=== PATIENT | female | born 2000 | race Caucasian/White ===

== ENCOUNTER 2019-01-01 21:25 | Emergency (ER) | payer SELFPAY ==
[2019-01-01 21:32] VITALS: BP 112/77; PULSE 92; RESP 16; TEMP 36.9; O2SAT 99; BMI 25.6
[2019-01-01 23:03] VITALS: BP 108/62; PULSE 82; RESP 16; O2SAT 100
[2019-01-01 23:30] VITALS: BP 108/67; PULSE 78; RESP 16; O2SAT 98
[2019-01-01] MEDS: KETOROLAC 60 MG/2 ML VIAL IM (23:48)
[2019-01-01] MEDS: ONDANSETRON 4 MG ODT SL (23:48)
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
[2019-01-02] VITALS: BP 119/59; PULSE 88; O2SAT 99
[2019-01-02] MEDS: ONDANSETRON 4 MG ODT PREPACK 1 BOTTLE MISC (00:54)
[2019-01-02 01:01] VITALS: BP 104/60; PULSE 80; RESP 18; O2SAT 100
== END 2019-01-02 01:02 | disposition home or self-care (01) ==
PROVIDERS: Emergency Provider Emergency Medicine
DX: R51 Headache (principal); V03.90XD Pedestrian on foot injured in collision with car, pick-up truck or van, unspecified whether traffic or nontraffic accident, subsequent encounter
CPT/HCPCS: 96372; 99283; J1885

== ENCOUNTER 2019-08-16 17:46 | Emergency (ER) | payer OTHER, SELFPAY ==
[2019-08-16 17:55] VITALS: BP 145/93; PULSE 116; RESP 16; TEMP 36.5; O2SAT 99; BMI 26.4
--- NOTE | 2019-08-16 19:10 | ED.SEIZURE ---
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 today. One of these was observed in the emergency department and involved some tonic clonic movement some vocalization she was able to respond throughout the seizure had no postictal period and is doing fine after spontaneouse resolution of the activity At the age of 14 she had full workup for similar including imaging EEGs and provocative testing. Eventually she was told that the seizures were related to migraine resolved after being on Topamax for a period of time. She notes that she had 4 seizures about a year and half ago following a very stressful day. Follow-up questioning on that does reveal that her job has been quite stressful and this morning they're some incidence at work that dramatically increased her overall stressors in the setting of having almost no sleep last night. She has a supportive partner at bedside who's quite concerned about her. She is awake alert able to give a completely coherent history including all of the workup from her initial diagnostic time and this is approximately 10 minutes after the last ?seizure? Related Data Allergies Allergy/AdvReac Type Severity Reaction Status Date / Time amoxicillin Allergy Severe Anaphylaxis Verified 08/16/19 17:55 cephalexin Allergy Severe Hives Verified 08/16/19 17:55 Penicillins Allergy Severe Anaphylaxis Verified 08/16/19 17:55 morphine Allergy Verified 08/16/19 17:55 Review of Systems Review of Systems Narrative: Denies ? fever ? cough ? cold ? chills ? chest pain ? dyspnea ? orthopnea ? wheezing ? abdominal pain ? change to bowel or bladder habits ? vomiting ? skin changes ? rashes Has had mild nausea, dry mouth, poor sleep, increased anxiety Patient History Medical History (Updated 08/16/19 @ 23:21 by Amie Nuñez MD) History of pseudoseizure (Inactive) Migraine (Acute) Social History Smoking Status: Never smoker Smoking Status: Never smoker alcohol intake frequency: 0-2 drinks per day Substance Use Type: does not use Exam Narrative Exam Narrative: General: Healthy appearing, in no acute distress. Able to give a complete and coherent history. Well-nourished well-developed HEENT: Moist mucous membranes, normal sclera with reactive pupils, pupils slightly dilated at 6 mm reactive to light accommodation Neck: No JVD, supple Respiratory: Lungs are clear to auscultation, no wheezing no rales no rhonchi. Full and symmetrical air movement Cardiac: Regular rate and rhythm no murmurs no bruits Abdomen: Soft nontender good bowel tones, no flank pain Skin: Warm and dry, no rashes Neurologic: Grossly neurologically intact with no obvious asymmetries or abnormalities. Reflexes are 2+ without hyper reflexia Extremities: No trauma, well perfused Psych: Cooperative, appropriate insight and affect Initial Vital Signs Initial Vital Signs: Vital Signs Temperature 97.7 F 08/16/19 17:55 Pulse Rate 116 H 08/16/19 17:55 Respiratory Rate 16 08/16/19 17:55 Blood Pressure 145/93 H 08/16/19 17:55 Pulse Oximetry 99 08/16/19 17:55 Course Orders Ordered: Discontinued Medications Sodium Chloride (Normal Saline 0.9%) 1,000 mls @ 1,000 mls/hr IV BOLUS ONE Stop: 08/16/19 20:14 Last Infusion: 08/16/19 20:38 Dose: 0 mls/hr Documented by: Admin: 08/16/19 19:29 Dose: 1,000 mls/hr Documented by: CHARMAINE Lorazepam (Ativan) 0.5 mg IV NOW ONE Stop: 08/16/19 19:16 Last Admin: 08/16/19 19:29 Dose: 0.5 mg Documented by: CHARMAINE Vital Signs Vital signs: Vital Signs - 8 hr 08/16/19 21:51 08/16/19 23:26 Pulse Rate 81 Blood Pressure [Left Arm] 101/56 L 114/69 Pulse Oximetry 98 MDM - Seizure Lab Data Result diagrams: 08/16/19 19:20 08/16/19 19:20 Labs: Lab Results 08/16/19 08/16/19 08/16/19 Range/Units 17:59 19:20 19:20 WBC 7.2 (4.5-11.0) X10^3/uL RBC 4.41 (4.0-5.2) X10^6/uL Hgb 13.3 (12.0-16.0) g/dL Hct 39.2 (36-46) % MCV 89.0 (80-100) fL MCH 30.1 (26-34) PG MCHC 33.8 (30-36) % RDW 14.2 (11.6-14.8) % Plt Count 321 (150-400) X10^3/uL Neut % (Auto) 65.9 (50-75) % Lymph % (Auto) 24.6 L (25-40) % [place] % (Auto) 7.5 (3-14) % Eos % (Auto) 1.2 L (2-4) % Baso % (Auto) 0.8 (0-2) % Neut # (Auto) 4700 (4472-1071) /uL Lymph # (Auto) 1800 (2591-9562) /uL [place] # (Auto) 500 (0-900) /uL Eos # (Auto) 100 (0-450) /uL Baso # (Auto) 100 (0-100) /uL Sodium 143 (137-145) mmol/L Potassium 3.9 (3.4-5.1) mmol/L Chloride 109 H (98-107) mmol/L Carbon Dioxide 25 (22-32) mmol/L BUN 13 (7-17) mg/dL Creatinine 0.60 (0.52-1.04) mg/dL Estimated GFR > 60.0 (>60) mL/min BUN/Creatinine Ratio 21.7 (6-22) Glucose 91 (70-100) mg/dL Calcium 10.7 H (8.4-10.2) mg/dL Magnesium 2.0 (1.6-2.3) mg/dL U Opiates 300ng/mL cut Negative (Negative) Ur Oxycodone Screen Negative (Negative) Urine Methadone Screen Negative (Negative) Ur Barbiturates Screen Negative (Negative) U Tricyclic Antidepress Negative (Negative) Ur Phencyclidine Scrn Negative (Negative) Ur Amphetamines Screen Negative (Negative) U Methamphetamines Scrn Negative (Negative) Ur MDMA Scrn (Ecstasy) Negative (Negative) U Benzodiazepines Scrn Negative (Negative) Urine Cocaine Screen Negative (Negative) U Marijuana (THC) Screen Negative (Negative) Point of Care Testing Test Results Negative Urine Dip Bedside Urine Glucose Negative Bedside Urine Bilirubin - Negative Bedside Urine Ketone - Negative Urine Specific [place] 1.010 Bedside Urine Occult Blood - Negative Bedside Urine pH 7.5 Bedside Urine Protein - Negative Bedside Urine Urobilinogen - Negative Bedside Urine Nitrite - Negative Bedside Urine Leukocytes - Negative Esterase Discharge Plan Departure Patient Disposition: Home Clinical Impression: Psychogenic nonepileptic seizure, Stress at work Discharge Date/Time: 08/16/19 23:30 Instructions: Tips for Reducing Stress in Your Life Activity Restrictions/Additional Instructions: Thank you for coming in today. Your workup was quite reassuring. I believe these are the nonepileptic seizures that you had experienced before. And I do think that your overall stress levels are exacerbating the problem. He is safe for you to go home. You do not need any medications to help with the seizures. I would recommend that you look at overall life stressors and see what you need to do to decrease some of the outside influences that are causing such significant inside influences I wish you the very best Stand Alone Forms: Work Release Note
[2019-08-16 19:27] LABS: Add Manual Diff / Slide Review NO; Basophils Absolute Auto 100 /uL (0-100); Basophils Percent Auto 0.8 % (0-2); Eosinophils Absolute Auto 100 /uL (0-450); Eosinophils Percent Auto 1.2 % (2-4); Hematocrit 39.2 % (36-46); Hemoglobin 13.3 g/dL (12.0-16.0); Lymphocytes Absolute Auto 1800 /uL (1100-4500); Lymphocytes Percent Auto 24.6 % (25-40); Mean Corpuscular HGB Conc 33.8 % (30-36); Mean Corpuscular Hemoglobin 30.1 PG (26-34); Monocytes Absolute Auto 500 /uL (0-900); Monocytes Percent Auto 7.5 % (3-14); Neutrophils Absolute Auto 4700 /uL (1500-7000); Neutrophils Percent Auto 65.9 % (50-75); Platelet Count 321 X10^3/uL (150-400); Red Blood Cell Count 4.41 X10^6/uL (4.0-5.2); Red Cell Distribution Width 14.2 % (11.6-14.8); White Blood Cell Count 7.2 X10^3/uL (4.5-11.0)
[2019-08-16] MEDS: SODIUM CHLORIDE 0.9% 1,000 ML 1000 ML IV (19:29)
[2019-08-16] MEDS: LORazepam 2 MG/ML INJ 0.5 MG IV (19:29)
[2019-08-16 19:39] LABS: BUN Creatinine Ratio 21.7 (6-22); Blood Urea Nitrogen 13 mg/dL (7-17); Calcium 10.7 mg/dL (8.4-10.2); Carbon Dioxide 25 mmol/L (22-32); Chloride 109 mmol/L (98-107); Estimated Glomerular Filt Rate > 60.0 mL/min (>60); Glucose 91 mg/dL (70-100); HEMOLYSIS 28 (0-50); Potassium 3.9 mmol/L (3.4-5.1); Sodium 143 mmol/L (137-145)
[2019-08-16 19:57] VITALS: BP 112/66; PULSE 85; O2SAT 98
[2019-08-16 20:01] LABS: UR Morphine/Opiate cutoff 300 Negative (Negative); Ur Creatinine Normal (Normal); Ur Specific Gravity Normal (Normal); Urine Amphetamines Negative (Negative); Urine Barbiturates Negative (Negative); Urine Benzodiazepines Negative (Negative); Urine Cocaine Negative (Negative); Urine MDMA Negative (Negative); Urine Methadone Negative (Negative); Urine Methamphetamines Negative (Negative); Urine Oxycodone Negative (Negative); Urine Phencyclidine Negative (Negative); Urine Tetrahydrocannabinol Negative (Negative); Urine Tricyclic Antidepressant Negative (Negative); Urine pH Normal (Normal)
[2019-08-16 20:50] VITALS: BP 105/56
[2019-08-16 21:51] VITALS: BP 101/56
[2019-08-16 23:26] VITALS: BP 114/69; PULSE 81; O2SAT 98
== END 2019-08-16 23:30 | disposition home or self-care (01) ==
PROVIDERS: Emergency Provider Emergency Medicine
DX: F44.5 Conversion disorder with seizures or convulsions (principal); Z56.6 Other physical and mental strain related to work
CPT/HCPCS: 36415; 80048; 80305; 81003; 81025; 83735; 85025; 96361; 96374; 99284; J2060

== ENCOUNTER → 2023-05-06 11:16 | Outpatient (CLI) | payer OTHER, SELFPAY | PROVIDERS: Visit Provider Registered Nurse | DX: R30.0 Dysuria (principal); N89.8 Other specified noninflammatory disorders of vagina | CPT/HCPCS: 87086; 87210 ==

== ENCOUNTER → 2023-11-22 14:07 | Outpatient (CLI) | payer OTHER, SELFPAY ==
--- NOTE | 2023-11-22 14:15 | DI.US.S_ITS ---
PROCEDURE: US PELVIC COMPLETE INDICATIONS: PROLONGED MENSES X 30 DAYS TECHNIQUE: Real-time scanning was performed of the pelvic organs, with image documentation. Additional endovaginal scanning was necessary due to incomplete visualization of the adnexal and endometrial structures by transabdominal scanning. COMPARISON: None. FINDINGS: Uterus: 7.3 x 3 x 4 cm. Anteverted positioning. Endometrium measures 5 mm, within normal limits for age. Partially seen cervical canal thickening. Ovaries: Right ovary measures 21 cc. 2.4 cm follicular cyst is seen. Left ovary measures 7 cc. Greater than 12 follicles are seen per ovary. Other: No pathologic free fluid. IMPRESSION: No acute uterine abnormality. Partially seen cervical canal thickening, possibly due to menstrual products. Consider direct visualization if there is clinical concern. Mildly enlarged right ovary. Greater than 12 follicles. These are nonspecific findings that could sometimes be seen with polycystic ovarian syndrome, correlating with clinical and laboratory findings. Dictated by: Darshan Daniels M.D. on 11/22/2023 at 16:11 Approved by: Darshan Daniels M.D. on 11/22/2023 at 16:15
[2023-11-22 15:22] LABS: Add Manual Diff / Slide Review NO; Basophils Absolute Auto 100 /uL (0-100); Eosinophils Absolute Auto 200 /uL (0-450); Eosinophils Percent Auto 2.4 % (2-4); Hematocrit 41.3 % (36-46); Hemoglobin 14.1 g/dL (12.0-16.0); Lymphocytes Absolute Auto 1900 /uL (1100-4500); Lymphocytes Percent Auto 29.9 % (25-40); Mean Corpuscular HGB Conc 34.1 % (30-36); Mean Corpuscular Hemoglobin 32.2 PG (26-34); Mean Corpuscular Volume 94.4 fL (80-100); Monocytes Absolute Auto 400 /uL (0-900); Monocytes Percent Auto 5.8 % (3-14); Neutrophils Absolute Auto 3900 /uL (1500-7000); Neutrophils Percent Auto 60.9 % (50-75); Platelet Count 318 X10^3/uL (150-400); Red Blood Cell Count 4.37 X10^6/uL (4.0-5.2); Red Cell Distribution Width 13.4 % (11.6-14.8); White Blood Cell Count 6.4 X10^3/uL (4.5-11.0)
[2023-11-22 16:07] LABS: HEMOLYSIS < 15 (0-50); Iron 102 ug/dL (37-170)
[2023-11-22 16:18] LABS: Percent Iron Saturation 27 % (15-50); Total Iron Binding Capacity 380 ug/dL (265-497); Transferrin 290 mg/dL (206-381)
== END ==
PROVIDERS: Referring Provider Physician Assistant Surgical; Visit Provider Physician Assistant Surgical
DX: N92.1 Excessive and frequent menstruation with irregular cycle (principal); N83.01 Follicular cyst of right ovary
CPT/HCPCS: 36415; 76856; 83540; 83550; 85025

== ENCOUNTER → 2023-11-30 08:40 | Outpatient (CLI) | payer OTHER, SELFPAY ==
[2023-11-30 09:51] LABS: Hemoglobin A1C% w Est Avg Glu 5.3 % (4.0-6.0)
[2023-11-30 10:18] LABS: Free T4, Direct Thyroxine 1.11 ng/dL (0.78-2.19)
[2023-11-30 10:31] LABS: Thyroid Stimulating Hormone 1.48 uIU/mL (0.47-4.68)
[2023-12-01 16:40] LABS: Anti Thyroglobulin Antibody <1.0 IU/mL (0.0-0.9)
== END ==
PROVIDERS: Referring Provider Obstetrics & Gynecology; Visit Provider Obstetrics & Gynecology
DX: N93.9 Abnormal uterine and vaginal bleeding, unspecified (principal)
CPT/HCPCS: 36415; 83036; 84439; 84443; 86800

== ENCOUNTER → 2024-08-09 13:15 | Outpatient (CLI) | payer OTHER, SELFPAY ==
[2024-08-09 14:09] LABS: COVID-19 CEPHEID 4-PLEX PCR Negative (Negative); Influenza A - CEPHEID Flu A NEGATIVE (NEGATIVE); Influenza B - CEPHEID Flu B NEGATIVE (NEGATIVE); Respiratory Syncytial Virus Negative (Negative)
== END ==
PROVIDERS: Visit Provider Nurse Practitioner Family
DX: R19.7 Diarrhea, unspecified (principal); J02.9 Acute pharyngitis, unspecified
CPT/HCPCS: 0241U; 87070